=== PATIENT | male | born 1945 | race Caucasian/White ===

== ENCOUNTER → 2023-04-28 09:51 | Outpatient (REF) | payer MEDICARE, OTHER, SELFPAY | LOC: MRI 3T 09:51 | PROVIDERS: ATTENDING PHYSICIAN Family Medicine | DX: R51.9 Headache, unspecified (principal) | CPT/HCPCS: 70551 ==

== ENCOUNTER → 2023-04-29 10:13 | Outpatient (REF) | payer MEDICARE, OTHER, SELFPAY | LOC: RCS 10:13 | PROVIDERS: ATTENDING PHYSICIAN Family Medicine; REFERRING PHYSICIAN Internal Medicine Cardiovascular Disease | DX: R55 Syncope and collapse (principal) | CPT/HCPCS: 93225; 93226 ==

== ENCOUNTER 2023-09-14 11:35 | Emergency (ER) | payer MEDICARE, OTHER, SELFPAY ==
[2023-09-14 11:41] VITALS: BP 156/100
[2023-09-14 12:09] LABS: % Basophils 0.4 % (0-2); % Eosinophils 0.3 % (0-6); % Immature Granulocytes 0.3 % (0-0.5); % Lymphocytes 17.9 % (20.5-51.1); % Monocytes 8.6 % (1.7-9.3); % Neutrophils 72.5 % (42.2-75.2); Absolute Lymphocytes 1.3 10^3/uL (1.2-3.4); Absolute Monocytes 0.6 10^3/uL (0.1-0.6); Absolute Neutrophils 5.3 10^3/uL (1.4-6.5); Hematocrit 40.6 % (39.0-52.0); Hemoglobin 13.8 g/dL (13.0-18.0); Mean Corpuscular Hgb 30.4 pg (27.0-31.0); Mean Corpuscular Volume 89.4 fL (80.0-94.0); Mean Platelet Volume 9.2 fL (7.4-10.4); Nucleated Red Blood Cells % 0 % (-); Platelet Count 214 10^3/uL (130-400); Red Blood Cell Count 4.54 10^6/uL (4.70-6.10); Red Cell Dist. Width 12.5 % (11.5-14.5); White Blood Cell Count 7.3 10^3/uL (4.8-10.8)
[2023-09-14 12:32] LABS: ALT (SGPT) 29 U/L (0-50); AST (SGOT) 32 U/L (17-59); Albumin 4.3 g/dl (3.5-5.0); Alkaline Phosphatase 81 U/L (38-126); Blood Urea Nitrogen 10 mg/dl (9-20); Calcium 9.6 mg/dl (8.4-10.2); Carbon Dioxide 30 mmol/L (22-30); Chloride 102 mmol/L (98-107); Glucose 89 mg/dl (70-99); Potassium 4.7 mmol/L (3.5-5.1); Sodium 140 mmol/L (135-145); Total Bilirubin 0.7 mg/dl (0.2-1.3); Total Protein 7.1 g/dl (6.3-8.2); eGFR > 60.00
[2023-09-14 12:49] LABS: COVID-19 Antigen Negative (Negative)
--- NOTE | 2023-09-14 13:54 | ED.GENMED ---
History of Present Illness
<CHRISTOPHER Mccurdy - Last Filed: 09/14/23 18:35>
General
Chief Complaint: Fatigue
Source: patient and spouse
Exam Limitations: none
Time Seen by Provider: 09/14/23 13:06
Nursing documentation reviewed up to this point in time: agreed with
History of Present Illness
History of Present Illness:
Patient is a 70-year-old male who presents to the ER brought by . Patient for the past 3 days he reports he has had neck pain and headache. He reports his head feels very stiff and he feels pressure the back of his head. He denies any
injury. He feels that he may have slept wrong but is unsure. He has not had any recent fevers. He had cold symptoms 10 days ago including sore throat but had no fever at that time. He presently denies any URI symptoms. reports patient does
have cognitive impairment but is able to give history. She has been giving patient Tylenol without relief. He is on blood thinners. He denies any recent trauma.
Triage note mentions fatigue however patient has no complaints of fatigue. Complaint is neck pain and headache.
Past History
<CHRISTOPHER Mccurdy - Last Filed: 09/14/23 18:35>
Past History
ED Past Medical History: Arrthythmia, CAD, HTN, Hypercholesterolemia and Other (Obstructive sleep apnea, osteoarthritis, spina bifida, glaucoma, cataracts)
ED Past Surgical History: Cardiac (CABG, ablation), Orthopedic and Tonsilectomy
Social History
Tobacco: Non-smoker
Alcohol: Occasional
Drug: None
Personal:
Living: with family
Employment: Retired
Family History
Family History: CAD
Review of Systems
<CHRISTOPHER Mccurdy - Last Filed: 09/14/23 18:35>
Review of Systems
Allergies reviewed?: Yes
Other source history: family
All Other Systems: ROS reviewed and negative except as documented in HPI and ROS
Constitutional: Reports no symptoms
EENT: Reports no symptoms
Respiratory: Reports no symptoms
Cardiac: Reports no symptoms
ABD/GI: Reports no symptoms; Denies nausea or vomiting
Musculoskeletal: Reports neck pain
Skin: Reports no symptoms
Neurological: Reports headache; Denies dizzy, weakness or numbness
Psychiatric: Reports no symptoms
Phy Exam
<CHRISTOPHER Mccurdy - Last Filed: 09/14/23 18:35>
General Physical Exam
General Presentation: no apparent distress
General age: appears stated age
General Skin: warm and dry
General Habitus: normal
General Mental: alert
General Hydration: appears well hydrated
ENT Exam
ENT Exam: EOMI
Cardiovascular Exam
Cardiovascular Exam: regular rate/rhythm, no murmur and normal peripheral pulses
Pulmonary Exam
Pulmonary Exam: lungs clear and no respiratory distress
Neurological Exam
Neurological Exam: alert, oriented x3, no motor deficits and no sensory deficits
Musculoskeletal Exam
Musculoskeletal Exam: other (Patient with limited range of motion to neck limited neck extension and limited right and left lateral movements)
Skin Exam
Skin Exam: normal color and warm/dry
Psychiatric Exam
Psychiatric Exam: normal mood/affect
Course
<CHRISTOPHER Mccurdy - Last Filed: 09/14/23 18:35>
Orders/Labs/Results
Orders:
Orders
09/14/23 11:44
Electrocardiogram (*1) Urgent
Reason for Study: Fatigue / Weakness
09/14/23 11:45
EKG- Treatment ONCE
09/14/23 11:49
COVID-19 Antigen Urgent
Source: Nasal Swab
Complete Blood Count/With Diff Urgent
Comprehensive Metabolic Panel Urgent
09/14/23 13:58
diazePAM [Valium Injection] 2 mg IV NOW STA
09/14/23 15:52
CT Head & Neck Angio W/wo IV Urgent
Comment:
Reason For Exam: headache /neck pain
09/14/23 17:04
Acetaminophen 1000MG/100Ml [Ofirmev] 1,000 mg in 100 ml IV ONCE
Acetaminophen IV Indication:: ED Narcotic Naive Pt-ONCE
Abnormal Lab Results
09/14/23
11:49
RBC 4.54 L 10^6/uL
(4.70-6.10)
Lymphocytes % 17.9 L %
(20.5-51.1)
09/14/23 11:49
09/14/23 11:49
Vital Signs
Initial and Last Documented VS:
Initial Vital Signs
Temp Pulse Resp BP Pulse Ox
98.0 F 65 16 156/100 98
09/14/23 11:41 09/14/23 11:41 09/14/23 11:41 09/14/23 11:41 09/14/23 11:41
Last Documented Vital Signs
Temp Pulse Resp BP Pulse Ox
98.0 F 65 16 127/69 98
09/14/23 11:41 09/14/23 11:41 09/14/23 11:41 09/14/23 18:00 09/14/23 18:30
Director Of District Office consulted with Physician
Director Of District Office consulted with physician?: Yes
Name of Physician Consulted: Luann
<Jeimy Kong MD - Last Filed: 09/15/23 11:26>
Orders/Labs/Results
Orders:
Orders
09/14/23 11:44
Electrocardiogram (*1) Urgent
Reason for Study: Fatigue / Weakness
09/14/23 11:45
EKG- Treatment ONCE
09/14/23 11:49
COVID-19 Antigen Urgent
Source: Nasal Swab
Complete Blood Count/With Diff Urgent
Comprehensive Metabolic Panel Urgent
09/14/23 13:58
diazePAM [Valium Injection] 2 mg IV NOW STA
09/14/23 15:52
CT Head & Neck Angio W/wo IV Urgent
Comment:
Reason For Exam: headache /neck pain
09/14/23 17:04
Acetaminophen 1000MG/100Ml [Ofirmev] 1,000 mg in 100 ml IV ONCE
Acetaminophen IV Indication:: ED Narcotic Naive Pt-ONCE
Abnormal Lab Results
09/14/23
11:49
RBC 4.54 L 10^6/uL
(4.70-6.10)
Lymphocytes % 17.9 L %
(20.5-51.1)
09/14/23 11:49
09/14/23 11:49
Vital Signs
Initial and Last Documented VS:
Initial Vital Signs
Temp Pulse Resp BP Pulse Ox
98.0 F 65 16 156/100 98
09/14/23 11:41 09/14/23 11:41 09/14/23 11:41 09/14/23 11:41 09/14/23 11:41
Last Documented Vital Signs
Temp Pulse Resp BP Pulse Ox
98.0 F 65 16 127/69 98
09/14/23 11:41 09/14/23 11:41 09/14/23 11:41 09/14/23 18:00 09/14/23 18:30
<CHRISTOPHER Mccurdy - Last Filed: 09/14/23 18:35>
MDM/Problems Addressed
MDM/Problems Addressed:
Patient is a 78-year-old male who presented for neck pain for the past several days associated with headache. He woke up this way but denies injury. He presents very muscular worse with any position change of the neck extension and right lateral
movements. He does however have headache. He denies any trauma. He is however on Eliquis. Patient presents awake alert no acute distress with a normal neurologic exam. With headache and neck pain CTA was done and negative. Patient was
evaluated by ED physician. Patient was given Valium here and IV Tylenol which did not improve his symptoms. He is in no acute distress , no meningismus afebrile labs unremarkable. Stable for discharge home with torticollis warm compresses Tylenol
and outpatient follow-up family doctor.
<CHRISTOPHER Mccurdy - Last Filed: 09/14/23 18:35>
*Critical Care Note
Total Time (30-74mins, 75-104mins- exclusive of procedures): Not Applicable
ED Attending Note
<CHRISTOPHER Mccurdy - Last Filed: 09/14/23 18:35>
-
Portions of this chart may have been created with voice recognition software.� Occasional wrong word or��sound alike� substitutions may have occurred due to the inherent limitations of voice recognition software.
<Jeimy Kong MD - Last Filed: 09/15/23 11:26>
ED Attending Note
Patient seen and examined by attending physician: Yes
I performed the substantive portion of visit, reviewed & personally made and approve the management plan that is documented in note by myself or BRIDGETT.: Yes
ED Attending Note:
78-year-old male with mild cognitive issues who presents emergency department with a 3-day history of headache and neck pain bilaterally. The headache is mostly bilateral temporal parietal area. It started in the morning when he woke up and
continues, no specific provoking relieving exacerbating factors. No numbness, tingling, focal weakness, visual changes, fever, chills, recent trauma or falls, dizziness, or other complaints. On exam, neurologically intact, [id number] normal,
motor 5 out of 5, sensory intact, cranial nerves II through XII intact. Will check Noncon head CT, and if unremarkable consider CTA to rule out more worrisome etiology such as dissection.
Discharge Plan
Departure
Patient Disposition: Home (Routine Discharge)
Date of Disposition: 09/14/23
Time of Disposition: 18:25
Patient with high blood pressure during this ER visit?: Yes
Condition: Fair
Covid-19: Not Applicable
Discharge Problem:
Acute torticollis
Instructions: Torticollis (DC), BLOOD PRESSURE
Prescriptions:
New
diazepam [Valium] 2 mg tablet
2 mg PO TID PRN (Reason: muscle spasm) Qty: 10 0RF
No Action
bwbrfnub-nhke-uubkug-hyalur ac 1 CAP capsule
1,500 mg PO DAILY
atorvastatin 40 MG tablet
40 mg PO QPM
Patient Comments:
Takes only Thursday, Thursday, Thursday
apixaban [Eliquis] 5 MG tablet
5 mg PO BID Qty: 60 6RF
nitroglycerin 0.4 MG tablet, sublingual
0.4 mg sublingual [id number] PRN (Reason: Chest Pain)
geriatric ajpkwwyc-tynl-crau [Spectravite Senior] 1 EACH tablet
1 ea PO DAILY
Loratadine Mg
10 tab PO PRN PRN (Reason: Allergy)
Vitamin D3 Tab
2,000 PO
aspirin 81 MG tablet,delayed release (DR/EC)
81 mg PO DAILY 0RF
metoprolol succinate 25 MG tablet extended release 24 hr
25 mg PO BID Qty: 60 3RF
Referrals:
Ulises Olvera MD [Family Provider] -
Activity Restrictions/Additional Instructions:
As discussed warm moist heat to neck several times a day. You may take Tylenol 650 mg every 4-6 hours. A prescription for Valium 2 mg was sent to your pharmacy.
take as directed. This medication is a muscle relaxer and will cause drowsiness. No driving or drinking alcohol taking this medication. Follow-up with your family doctor in the next several days for reevaluation and return if any worsening of
symptoms
Interventions
Interventions:
*Risk Screen - Suicide Last Done: 09/14/23 15:15
*General Assessment Last Done: 09/14/23 15:15
*Neglect/Abuse Screening Last Done: 09/14/23 15:15
ED- Fall Risk Assessment Last Done: 09/14/23 15:15
*ED COVID-19 Vaccine History Last Done: 09/14/23 11:41
*Nursing Disposition Last Done: 09/14/23 18:49
Discharge Date and Time
Discharge Date/Time: 09/14/23 18:52
Print Language: QATARI
[2023-09-14] MEDS: VALIUM INJECTION 2 MG IV (14:27)
[2023-09-14 15:02] VITALS: BMI 24.6
[2023-09-14 15:09] VITALS: BP 139/71
[2023-09-14 16:22] VITALS: BP 137/71
[2023-09-14 17:00] VITALS: BP 134/75
[2023-09-14] MEDS: OFIRMEV 100 IV (17:10)
[2023-09-14 18:00] VITALS: BP 127/69
== END 2023-09-14 18:52 | disposition home or self-care (01) ==
LOC: EMR 11:35
PROVIDERS: Emergency Medicine; EMERGENCY PHYSICIAN Emergency Medicine; FAMILY PHYSICIAN Family Medicine
DX: M43.6 Torticollis (principal); I10 Essential (primary) hypertension
CPT/HCPCS: 99285; 96374; 96375; 70496; 70498; 80053; 85025; 87811; 93005; Q9967

== ENCOUNTER 2024-09-08 06:22 | Day surgery (SDC) | payer MEDICARE, OTHER, SELFPAY ==
--- NOTE | 2024-09-01 16:21 | PTCARENOTE ---
Abnormal ECG done 08/24/[address] Dove, no further interventions requested.
[2024-09-08] VITALS (8 sets, daily range): BP systolic 113–152; BP diastolic 60–82; BMI 24.0
[2024-09-08] MEDS: TYLENOL 1000 MG PO (07:35)
[2024-09-08] MEDS: NORMOSOL-R/PLASMALYTE-A 1000 IV (07:37)
--- NOTE | 2024-09-08 08:24 | HP.FOC2 ---
Focused History & Physical
Chief Complaint
HPI:
Chief Complaint: Left inguinal hernia
HPI / Indication for Planned Procedure: 79-year-old male presents with a left inguinal hernia. Will plan for an open left inguinal hernia repair with mesh.
Relevant Past Medical History: Other (afib)
Relevant Social History: Negative
Relevant Family History: Negative
Relevant Past Surgical History: Negative
Review of Systems
Review of Pertinent Systems: All Systems Negative
Medication
See Medication form for detailed medications: Yes
Medication List (including Herbals & OTC):
atorvastatin 40 mg tablet 20 mg PO MOWEFR 07/27/13
apixaban 5 mg tablet (Eliquis) 5 mg PO BID ##60 07/28/13
metoprolol succinate 25 mg tablet,extended release 24 hr 25 mg PO BID ##60 09/10/18
One-A-Day 50 Plus 1 dose PO DAILY 09/05/24
Triple Osteo Glucosamine 1 dose PO DAILY 09/05/24
biotin 1,000 mcg chewable tablet 1,000 mcg PO DAILY 09/05/24
cholecalciferol (vitamin D3) 50 mcg (2,000 unit) tablet (Vitamin D3) 50 mcg PO DAILY 09/05/24
ezetimibe 10 mg tablet 10 mg PO HS 09/05/24
loratadine 10 mg tablet 10 mg PO DAILY 09/05/24
Medications Reviewed: Yes
Allergies and Reactions
Patient has Allergies: Yes
Noted Allergies and Reactions:
Allergy/AdvReac Type Severity Reaction Status Date / Time
Penicillins Allergy Hives Verified 09/08/24 07:23
Sulfa (Sulfonamide Allergy Hives Verified 09/08/24 07:23
Antibiotics)
Seasonal Allergy Sneezing, Uncoded 09/08/24 07:23
runny
nose,
post-nasal
drip
Pertinent Physical Exam
All Other Systems: Negative
Head/Neck: Normal
Diagnosis / Assessment
79-year-old male presents with a symptomatic left inguinal hernia.
Plan / Procedure
Will plan for an open left inguinal hernia repair with mesh.
Anesthesia/Sedation to be done by Anesthesia Provider: Yes
--- NOTE | 2024-09-08 08:25 | W.SUR.PREOP ---
Pre-Operative Surgical Note
-
I have examined this patient prior to the performance of the scheduled procedure.
The patient's condition is unchanged from the time of the current History and
Physical and the patient is able to undergo the scheduled procedure.
--- NOTE | 2024-09-08 10:18 | W.IMMPOSTOP ---
Surgical Immed Post Op Note
-
Primary Surgeon: Thony Navarro MD
Assisting Surgeon: None
Pre-op Diagnosis: Left inguinal hernia
Post-op Diagnosis: Same
Procedure Performed:
1. Open left inguinal hernia repair with mesh.
2. Pragmatic left inguinal neurectomy x 2
Anesthesia Type: General
Specimen / Cultures: Left inguinal nerves x 2 (ilioinguinal nerve, iliohypogastric nerve)
Estimated Blood Loss: 1 cc
Complications: None
Operative Findings: Small indirect defect and medium cord lipoma identified and resected/high ligation performed. Standard open left inguinal Dee repair with mesh (Bard soft, uncoated polypropylene). The ilioinguinal and iliohypogastric
nerves were identified and ligated high as they exited from the muscle with 3-0 Vicryl suture.
--- NOTE | 2024-09-08 10:27 | OR.RPT ---
Operative Report
Operative Report
Patient Name: Farrukh Ricks
: 1945
Date of Operation: 09/08/2024
Preoperative Diagnosis: Reducible Inguinal hernia, left
Postoperative Diagnosis: Same
Procedure(s):
1. Open left inguinal Hernia Repair with mesh
2. Pragmatic left neurectomy x 2
Surgeon(s):
Dr. Navarro
Recycling Manager(s):
SHEILA Moya
KARRIE Quintanilla
Anesthesia: General
Estimated Blood Loss: 1 cc
Urine Output: None
Drains/Lines/Implants: 10 x 15 cm Bard soft mesh cut to size
Specimens: Inguinal nerves x 2
Indication for surgery: The patient has a history of groin pain and some asymmetry noted on exam and was found to have a left inguinal Hernia. Following review of therapeutic options they has elected to undergo an open repair
Operative Findings: Small indirect defect and medium cord lipoma identified and resected/high ligation performed. Standard open left inguinal Dee repair with mesh (Bard soft, uncoated polypropylene). The ilioinguinal and iliohypogastric
nerves were identified and ligated high as they exited from the muscle with 3-0 Vicryl suture.
Details of the operation:
After induction of general anesthesia, the patient was clipped, prepped and draped in the supine position. A team timeout was performed confirming administration of DVT prophylaxis, IV antibiotics and SCDs. The ASIS and pubic tubercle were marked
and an incision was chosen along the course of a skin line. The skin was anesthetized with Lidocaine. An incision was made through the skin line and dissection carried down through subcutaneous tissue and Christina's fascia. The superficial epigastric
vein was identified and ligated. A Small Medhat wound retractor was used to provide exposure. The external oblique fibers were then divided in the direction of travel. The ilioinguinal and iliohypogastric nerves were identified and sacrificed hide
near their exit from the muscle with 3-0 Vicryl ties. Dissection was carried down to the floor, which revealed the following:
At the site of the indirect (internal) ring, there was a moderate size protrusion of preperitoneal fat, the hernia sac was identified, dissected and reduced off the cord structures. A high ligation was performed with a 2-0 Vicryl tie.
A cord lipoma was also identified and resected.
The direct space, floor of the canal revealed no weakness.
The floor of the canal was then reconstructed by placing a 10 x 15 cm BARD soft uncoated polypropylene mesh trimmed to size and secured it in place with interrupted 0-PDS sutures medially at the pubic tubercle, inferiorly along the inguinal
ligament, laterally/superiorly in the conjoint tendon. A slit was made in the mesh just wide enough to accommodate the cord this was also reapproximated with the PDS suture. Care was taken not to injure or entrap any nerves. The external oblique
fibers were then closed using a running 2-0 Vicryl suture. Christina's fascia was then closed with interrupted 3-0 Vicryl suture. The skin was closed in layers with interrupted 3-0 vicryl deep dermals followed by a running subcuticular 4-0 Monocryl
followed by dermabond. The patient returned to the Recovery Room in stable condition. Sponge and instrument counts were correct.
I was the attending physician and performed the procedure with assistance of the PA above. The assistance of SHEILA Moya was required due to the complexity of the procedure. During the procedure Tessie assisted with retraction, resection, and
closure of the wound. I was present for all portions of the case, excluding skin closure.
Thony Navarro MD
== END 2024-09-08 12:18 | disposition home or self-care (01) ==
LOC: SDS 06:22
PROVIDERS: ATTENDING PHYSICIAN Surgery
DX: K40.90 Unilateral inguinal hernia, without obstruction or gangrene, not specified as recurrent (principal)
CPT/HCPCS: 49505; 88304